=== PATIENT | female | born 1975 | race Caucasian/White ===

== ENCOUNTER 2020-02-19 13:32 | Day surgery (SDC) | payer OTHER ==
[2020-02-17 17:02] VITALS: BMI 20.3
[2020-02-19] MEDS ORDERED: oxyCODONE HCL 5 MG TABLET PO PRN (14:18)
[2020-02-19] MEDS ORDERED: ONDANSETRON 4 MG/2 ML VIAL IVPUSH PRN (14:18)
[2020-02-19] MEDS ORDERED: LACTATED RINGERS SOLUTION 1,000 ML IV SCH (14:30)
[2020-02-19] MEDS ORDERED: PROPOFOL 20 ML ONE (15:55)
[2020-02-19] MEDS ORDERED: MIDAZOLAM HCL 2 MG/2 ML SINGLE DOSE VIAL ONE (15:55)
[2020-02-19] MEDS ORDERED: DEXAMETHASONE SOD PHOSPHATE 4 MG/1 ML VIAL ONE (16:14)
[2020-02-19] MEDS ORDERED: ONDANSETRON 4 MG/2 ML VIAL ONE (16:14)
[2020-02-19] MEDS ORDERED: KETOROLAC TROMETHAMINE 30 MG/1 ML VIAL ONE (16:14)
[2020-02-19] MEDS ORDERED: BUPIVACAINE HCL/PF 0.25% (2.5MG/ML) 10 ML VIAL IJ ONE (16:28)
--- NOTE | 2020-02-19 17:32 | OP ---
DATE OF OPERATION: 02/19/2020 PREOPERATIVE DIAGNOSIS: Right carpal tunnel syndrome. POSTOPERATIVE DIAGNOSIS: Right carpal tunnel syndrome. OPERATIVE PROCEDURE: Right endoscopic carpal tunnel release. ANESTHESIA: General anesthesia. COMPLICATIONS: None. ESTIMATED BLOOD LOSS: Minimal. INDICATION FOR PROCEDURE: The patient is a 44-year-old female with the above findings, indicated for operative treatment. Risks, benefits, and alternatives were discussed with the patient at length. Proper informed consent was obtained. PROCEDURE: After proper identification of the patient and correct operative site, patient was brought to the operating room and placed supine on the operating table, all bony prominences well padded. General anesthesia was given. Right upper extremity was prepped and draped in the usual sterile fashion. Well-padded tourniquet was placed with a sterile prep. Esmarch bandage to exsanguinate the right upper extremity. Tourniquet inflated to 250 mmHg. Transverse incision made just proximal to wrist crease. Incision was taken sharply through the skin with blunt and sharp dissection through subcutaneous tissues. The antebrachial fascia was identified and divided, and the carpal canal was entered with an elevator, and soft tissue was freed from the undersurface of the transverse carpal ligament. The Hamate finder dilators were used to prepare the canal. The Microaire endoscopic carpal tunnel release system was then used to release the transverse carpal ligament. At all times throughout the procedure, excellent visualization was achieved, and at no time was any soft tissue allowed to interpose between the blade and the transverse carpal ligament. The blade was inserted and deployed to the transverse carpal ligament, which was positively confirmed both palpably as well as visually. The blade was then deployed, and a distal third of the transverse carpal ligament divided. The blade was retracted, and visual confirmation of complete release of distal edge was again confirmed. The blade was again deployed, and the remaining 2/3 of transverse carpal ligament was divided, and then under the direct mini-open approach, the distal 4 cm of the antebrachial fascia were divided under direct visualization which provided complete release of the median nerve of the wrist. Wound was repaired with a 4-0 Monocryl suture. Steri-Strips and sterile dressing were applied. The patient was reversed from anesthesia and brought to the recovery room in stable condition. She tolerated the procedure well. KAMILLE AARON M.D. [id number]
[2020-02-19 18:21] VITALS: TEMP 97.8
[2020-02-19 18:24] VITALS: BP 132/81; PULSE 74
== END 2020-02-19 18:10 | disposition home or self-care (01) ==
LOC: FASU 13:32
PROVIDERS: ATTEND Orthopaedic Surgery Hand Surgery
PROC: 01N54ZZ Release Median Nerve, Percutaneous Endoscopic Approach (ICD-10-PCS; principal; 2020-02-19 16:20)
DX: G56.01 Carpal tunnel syndrome, right upper limb (principal)
CPT/HCPCS: 94760

== ENCOUNTER 2020-05-13 08:41 | Day surgery (SDC) | payer OTHER ==
[2020-05-05 13:52] VITALS: BMI 20.7
[2020-05-13] MEDS ORDERED: BUPIVACAINE HCL/PF 0.25% (2.5MG/ML) 10 ML VIAL ONE (10:05)
[2020-05-13] MEDS ORDERED: GUM MASTIC/STORAX/MSAL/ALCOHOL 1 DRP DROPSBTL MC ONE (10:15)
[2020-05-13] MEDS ORDERED: MIDAZOLAM HCL 2 MG/2 ML SINGLE DOSE VIAL ONE (10:24)
[2020-05-13] MEDS ORDERED: ONDANSETRON 4 MG/2 ML VIAL ONE (10:29)
[2020-05-13] MEDS ORDERED: PROPOFOL 20 ML ONE (10:29)
[2020-05-13] MEDS ORDERED: DEXAMETHASONE SOD PHOSPHATE 4 MG/1 ML VIAL ONE (10:29)
[2020-05-13] MEDS ORDERED: LIDOCAINE HCL/PF 2% SDV 5ML VIAL ONE (10:29)
[2020-05-13] MEDS ORDERED: KETOROLAC TROMETHAMINE 30 MG/1 ML VIAL ONE (10:50)
[2020-05-13] MEDS ORDERED: BUPIVACAINE HCL/PF 0.25% (2.5MG/ML) 10 ML VIAL IJ ONE (11:00)
[2020-05-13 11:24] VITALS: TEMP 97.7
[2020-05-13] MEDS ORDERED: oxyCODONE HCL 5 MG TABLET PO PRN ×2 (11:34)
[2020-05-13] MEDS ORDERED: ONDANSETRON 4 MG/2 ML VIAL IVPUSH PRN (11:34)
[2020-05-13] MEDS ORDERED: LACTATED RINGERS SOLUTION 1,000 ML IV SCH (11:45)
[2020-05-13 12:39] VITALS: BP 125/78; PULSE 84
--- NOTE | 2020-05-13 14:34 | OP ---
DATE OF OPERATION: 05/13/2020 PREOPERATIVE DIAGNOSES: 1. Left carpal tunnel syndrome. 2. Left trigger thumb. POSTOPERATIVE DIAGNOSES: 1. Left carpal tunnel syndrome. 2. Left trigger thumb. OPERATIVE PROCEDURE: 1. Left endoscopic carpal tunnel release. 2. Left trigger thumb release. SURGEON: Godwin Martínez MD ANESTHESIA: General. COMPLICATIONS: None. ESTIMATED BLOOD LOSS: Minimal. INDICATIONS FOR PROCEDURE: The patient is a 45-year-old female with the above findings indicated for operative treatment. The risks, benefits, and alternatives were discussed with the patient at length and proper informed consent was obtained. PROCEDURE: After proper identification of the patient and correct operative site, the patient was brought to the operating room and placed supine on the table. Prominences were well padded. General anesthesia was given. The left upper extremity was prepped and draped in the usual sterile fashion. A well-padded tourniquet was placed with a sterile prep. Esmarch bandage was used to exsanguinate the left upper extremity. The tourniquet was inflated to 250 mmHg. Transverse incision was made over the proximal wrist crease just ulnar to the palmaris longus tendon taking care to protect the palmar cutaneous nerve. Blunt dissection was to the tissues and the antebrachial fascia was divided. The carpal canal was entered with an elevator and soft tissue was freed from the undersurface of the transverse carpal ligament. Hamate finder and dilators were then used to prepare the canal and the Microaire endoscopic carpal tunnel release system was inserted to the distal edge of the transverse carpal ligament confirmed digitally as well as palpably. At all times throughout the procedure excellent visualization was achieved and at no time was any soft tissue allowed to interpose between the blade and the undersurface of the transverse carpal ligament. The blade was deployed and the transverse carpal ligament was divided in its entirety using a direct mini open approach. The distal 4 cm of antebrachial fascia were also divided sporadically completely of the median nerve of the wrist. The wound was repaired with a 4-0 Monocryl suture and Steri-Strips were applied. A second incision was made transversely over the A1 ashwini of the thumb. The incision was taken sharply through the skin with blunt and sharp dissection of the subcutaneous tissues. The A1 ashwini was identified and neurovascular structures were carefully dissected. The A1 ashwini was divided and the thumb was flexed and extended and no further impingement on the flexor tendon was noted. Free excursion was noted. The wound was irrigated and repaired with a 5-0 plain gut suture as well as Dermabond. Sterile dressings were applied. The patient was brought to the recovery room in stable condition. She tolerated the procedure well Cb [id number]
== END 2020-05-13 12:35 | disposition home or self-care (01) ==
LOC: FASU 08:41
PROVIDERS: ATTEND Orthopaedic Surgery Hand Surgery
PROC: 01N54ZZ Release Median Nerve, Percutaneous Endoscopic Approach (ICD-10-PCS; principal; 2020-05-13 10:44)
PROC: 0LN80ZZ Release Left Hand Tendon, Open Approach (ICD-10-PCS; 2020-05-13 10:44)
DX: G56.02 Carpal tunnel syndrome, left upper limb (principal); M65.312 Trigger thumb, left thumb
CPT/HCPCS: 84703; 94760